=== PATIENT | female | born 1965 | race Caucasian/White ===

== ENCOUNTER 2020-11-15 12:57 | Observation (INO) | payer MEDICARE ==
[~2020-11-15] VITALS: Ht 160 cm; Wt 90.5 kg
--- NOTE | 2020-11-15 13:29 | NUR ---
DR BOYLE AT BS FOR EXAM
[2020-11-15] MEDS ORDERED: LORazepam 2 MG/ML, 1ML IV ONE (13:39)
[2020-11-15] MEDS ORDERED: KETOROLAC 30 MG/1 ML ONE (13:55)
[2020-11-15] MEDS ORDERED: LORazepam 2 MG/ML, 1ML ONE (13:55)
[2020-11-15] MEDS ORDERED: SODIUM CHLORIDE 0.9% 1,000ML IV ONE ×2 (14:00→18:00)
[2020-11-15] MEDS ORDERED: SODIUM CHLORIDE FLUSH 10ML SYR IVF ONE (14:00)
[2020-11-15] MEDS ORDERED: KETOROLAC 30 MG/1 ML IVPush ONE (14:00)
[2020-11-15 14:04] LABS: MEAN CORPUSCULAR HEMOGLOBIN 27.6 pg (27.0-34.8); MEAN CORPUSCULAR HGB CONC 33.8 g/dL (32.4-35.8); PLATELET COUNT 156 x10^3/uL (130-400); RED CELL DISTRIBUTION WIDTH 15.4 % (9.6-15.2)
--- NOTE | 2020-11-15 14:10 | NUR ---
AMBULATORY TO [facility] W/ STEADY GAIT.
[2020-11-15 14:17] LABS: ALBUMIN 3.7 g/dL (3.4-5.0); ANION GAP 8 mmol/L (5-15); CALCIUM 8.7 mg/dL (8.5-10.1); CHLORIDE 113 mmol/L (98-107); CREATININE 0.84 mg/dL (0.55-1.02)
[2020-11-15] MEDS: PLEASE ENTER ALLERGIES MC SCH (14:17)
--- NOTE | 2020-11-15 14:27 | NUR ---
PIV AND NS BOLUS INITIATED. TORADOL AND ATIVAN GIVEN PER EMAR. MONITORING CONTINUING, SIDE RAILS UP X 2, CALL LIGHT W/IN REACH.
[2020-11-15 14:47] LABS: MD YES
[2020-11-15 14:50] LABS: LYMPH#(MANUAL) 1.02 x10^3/uL (1-3.4); LYMPHS% (MANUAL) 5 % (22-44); MONOS#(MANUAL) 0.41 x10^3/uL (0.3-2.7); MONOS% (MANUAL) 2 % (2-9); SEG#(MANUAL) 18.88 x10^3/uL (1.8-6.8); SEGS% (MANUAL) 93 % (42-75)
[2020-11-15 14:51] LABS: MICROSCOPIC AUTO
[2020-11-15 14:52] LABS: <PLATELET ESTIMATE> ADEQUATE; <PLT MORPHOLOGY> NORMAL PLT MORPH
[2020-11-15 14:53] LABS: <RBC MORPHOLOGY> NORMAL
--- NOTE | 2020-11-15 15:59 | NUR ---
PT DOZING; EASILY AWAKENED. MONITORING CONTINUING: SINUS TACH.
[2020-11-15] MEDS ORDERED: CEFTRIAXONE PMX 1GM/50ML 50 ML IVPB ONE (16:00)
[2020-11-15] MEDS ORDERED: SODIUM CHLORIDE 0.9% 1,000ML IVBOLUS ONE ×2 (16:00→17:00)
[2020-11-15] MEDS ORDERED: MELOXICAM (16:03)
[2020-11-15] MEDS ORDERED: CITA10TA4 PO (16:03)
[2020-11-15] MEDS ORDERED: GABA300C PO ×2 (16:03→16:04)
[2020-11-15] MEDS ORDERED: MELO7.5T31 PO (16:04)
--- NOTE | 2020-11-15 16:34 | NUR ---
NS BAG #2 DEIDRE. LATRICE JIANG. BLD CX BAND ON PT WRIST.
--- NOTE | 2020-11-15 16:45 | NUR ---
CALLED PT'S FRIEND, AT PT'S REQUEST: BRUNO MARKS, [birth year], CELL [phone], HOME [phone]. PT STATUS PROVIDED TO BRUNO. OFFERED TO CALL BRUNO LATER WHEN POC IS DETERMINED.
--- NOTE | 2020-11-15 16:58 | NUR ---
PT REPORT TO LAURA BROWN RN. PT CARE TRANSFERRED.
--- NOTE | 2020-11-15 17:40 | NUR ---
PT REPORT FROM JOSE ELIAS BROWN. PT CARE TO BE ASSUMED.
[2020-11-15] MEDS ORDERED: DOCUSATE 100 MG CAPSULE PO PRN (18:00)
[2020-11-15] MEDS ORDERED: ACETAMINOPHEN 325 MG TABLET PO PRN (18:00)
[2020-11-15] MEDS ORDERED: POLYETHYLENE GLYCOL 17 GM PACKET PO PRN (18:00)
[2020-11-15] MEDS ORDERED: ONDANSETRON 2MG/ML, 2ML IV PRN (18:00)
[2020-11-15] MEDS ORDERED: CEFTRIAXONE PMX 1GM/50ML 50 ML IV ONE (18:00)
[2020-11-15] MEDS ORDERED: CEFTRIAXONE PMX 1GM/50ML 50 ML ONE ×2 (18:23→19:31)
--- NOTE | 2020-11-15 18:33 | NUR ---
PT AMBULATORY TO & FROM [facility] W/OUT INCIDENT; GAIT STEADY. NS BAG #3 HUNG; IV SITE PATENT.
--- NOTE | 2020-11-15 18:36 | NUR ---
2 ADDITIONAL NS BOLUS ORDERS IN CHART; WOULD MAKE A TOTAL OF 5 LITERS NS BOLUSES; WILL CONFIRM ADDITIONAL ORDERS W/ HOSPITALIST.
[2020-11-15 18:38] LABS: FIO2 RA %
[2020-11-15 18:45] LABS: MEAN CORPUSCULAR HEMOGLOBIN 27.5 pg (27.0-34.8); MEAN CORPUSCULAR HGB CONC 33.5 g/dL (32.4-35.8); MEAN PLATELET VOLUME 10.5 fL (7.4-10.4); PLATELET COUNT 152 x10^3/uL (130-400); RED CELL DISTRIBUTION WIDTH 15.5 % (9.6-15.2)
[2020-11-15 18:52] LABS: ALBUMIN 3.1 g/dL (3.4-5.0); ANION GAP 6 mmol/L (5-15); CALCIUM 7.7 mg/dL (8.5-10.1); CHLORIDE 115 mmol/L (98-107)
[2020-11-15 18:57] LABS: ALANINE AMINOTRANSFERASE 30 U/L (12-78); ALKALINE PHOSPHATASE 99 U/L (45-117); BILIRUBIN,TOTAL 0.6 mg/dL (0.2-1.0); CREATININE 0.82 mg/dL (0.55-1.02)
[2020-11-15 19:07] LABS: MD YES
[2020-11-15 19:10] LABS: BAND#(MANUAL) 0.19 x10^3/uL; BANDS%(MANUAL) 1 % (0-7); LYMPH#(MANUAL) 1.16 x10^3/uL (1-3.4); LYMPHS% (MANUAL) 6 % (22-44); MONOS#(MANUAL) 0.39 x10^3/uL (0.3-2.7); MONOS% (MANUAL) 2 % (2-9); SEG#(MANUAL) 17.56 x10^3/uL (1.8-6.8); SEGS% (MANUAL) 91 % (42-75)
[2020-11-15 19:11] LABS: <PLATELET ESTIMATE> ADEQUATE; <PLT MORPHOLOGY> NORMAL PLT MORPH; <RBC MORPHOLOGY> NORMAL
--- NOTE | 2020-11-15 19:36 | NUR ---
3RD LITER OF NS INFUSED. 4TH LITER HUNG; INFUSING AT TKO
[2020-11-15] MEDS: SODIUM CHLORIDE 0.9% 1,000 ML IV SCH (19:37)
--- NOTE | 2020-11-15 19:41 | NUR ---
LATRICE 1GM PHILIP JIANG.
--- NOTE | 2020-11-15 19:47 | NUR ---
CALLED RECEIVING UNIT; RN NOT CURRENTLY AVAILABLE BUT WILL CALL BACK.
[2020-11-15] MEDS ORDERED: ENOXAPARIN 40 MG/0.4 ML ONE (19:48)
--- NOTE | 2020-11-15 20:02 | NUR ---
PT REPORT TO JOSE ELIAS BIRD FOR ROOM [id number]
[2020-11-15] MEDS: ENOXAPARIN 40 MG/0.4 ML SQ SCH (20:16)
--- NOTE | 2020-11-15 20:16 | NUR ---
LOVENOX GIVEN PER EMAR. PT TRANSFERRED TO FLOOR
[2020-11-15] MEDS: HYDROcodone/APAP 5/325 TABLET PO PRN (20:54)
[2020-11-15 21:00] VITALS: BP 100/67
[2020-11-16] MEDS: SODIUM CHLORIDE 0.9% 1,000 ML IV SCH (02:26)
[2020-11-16 02:28] VITALS: BP 93/61
[2020-11-16] MEDS: HYDROcodone/APAP 5/325 TABLET PO PRN (06:00)
[2020-11-16 06:54] VITALS: BP 114/70
[2020-11-16 07:37] LABS: BASOPHILS % (AUTO) 0 % (0-1); EOSINOPHILS % (AUTO) 0 % (1-7); LYMPHOCYTES % (AUTO) 9 % (22-44); MEAN CORPUSCULAR HEMOGLOBIN 27.7 pg (27.0-34.8); MEAN CORPUSCULAR HGB CONC 33.1 g/dL (32.4-35.8); MEAN PLATELET VOLUME 9.8 fL (7.4-10.4); MONOCYTES % (AUTO) 5 % (2-9); NEUTROPHILS % (AUTO) 86 % (42-75); PLATELET COUNT 133 x10^3/uL (130-400); RED BLOOD COUNT 4.46 x10^6/uL (3.82-5.3); RED CELL DISTRIBUTION WIDTH 15.6 % (9.6-15.2)
[2020-11-16 07:50] LABS: MD NO
[2020-11-16 08:10] LABS: HCT (SEDRATE) 37.3 % (34.6-47.8)
[2020-11-16 08:14] LABS: INTERNATIONAL NORMALIZED RATIO 1.11 (0.93-1.1); PROTHROMBIN TIME 11.9 Seconds (9.6-11.5)
[2020-11-16] MEDS ORDERED: PROCHLORPERAZINE 5 MG/ML, 2ML IVPush PRN (11:30)
[2020-11-16 12:16] VITALS: BP 102/67
[2020-11-16] MEDS: CEFTRIAXONE PMX 2GM/50ML 50 ML IVPB SCH (17:45)
[2020-11-16 19:11] VITALS: BP 103/60
[2020-11-16] MEDS: ENOXAPARIN 40 MG/0.4 ML SQ SCH (20:01)
[2020-11-17 03:11] VITALS: BP 96/59
[2020-11-17 06:47] VITALS: BP 104/69
[2020-11-17 09:10] LABS: ANION GAP 6 mmol/L (5-15); CALCIUM 8.4 mg/dL (8.5-10.1); CHLORIDE 109 mmol/L (98-107); CREATININE 0.93 mg/dL (0.55-1.02)
[2020-11-17 09:13] LABS: BASOPHILS % (AUTO) 0 % (0-1); EOSINOPHILS % (AUTO) 2 % (1-7); LYMPHOCYTES % (AUTO) 21 % (22-44); MEAN CORPUSCULAR HEMOGLOBIN 27.7 pg (27.0-34.8); MEAN CORPUSCULAR HGB CONC 33.1 g/dL (32.4-35.8); MEAN PLATELET VOLUME 9.9 fL (7.4-10.4); MONOCYTES % (AUTO) 8 % (2-9); NEUTROPHILS % (AUTO) 70 % (42-75); PLATELET COUNT 159 x10^3/uL (130-400); RED BLOOD COUNT 4.53 x10^6/uL (3.82-5.3); RED CELL DISTRIBUTION WIDTH 15.4 % (9.6-15.2)
[2020-11-17 09:19] LABS: MD NO
[2020-11-17 13:11] VITALS: BP 112/76
[2020-11-17] MEDS ORDERED: CEFD300C37 PO (14:17)
[2020-11-17] MEDS ORDERED: POTASSIUM CHLORIDE 20 MEQ TAB.ER.PRT PO ONE (17:30)
[2020-11-17] MEDS: CEFTRIAXONE PMX 2GM/50ML 50 ML IVPB SCH (17:32)
[2020-11-17 20:20] VITALS: BP 115/70
[2020-11-17] MEDS: ENOXAPARIN 40 MG/0.4 ML SQ SCH (20:20)
[2020-11-18 01:57] VITALS: BP 116/74
[2020-11-18 06:04] LABS: BASOPHILS % (AUTO) 0 % (0-1); EOSINOPHILS % (AUTO) 2 % (1-7); LYMPHOCYTES % (AUTO) 28 % (22-44); MEAN CORPUSCULAR HEMOGLOBIN 27.4 pg (27.0-34.8); MEAN CORPUSCULAR HGB CONC 33.3 g/dL (32.4-35.8); MEAN PLATELET VOLUME 10.2 fL (7.4-10.4); MONOCYTES % (AUTO) 8 % (2-9); NEUTROPHILS % (AUTO) 62 % (42-75); PLATELET COUNT 166 x10^3/uL (130-400); RED CELL DISTRIBUTION WIDTH 15.2 % (9.6-15.2)
[2020-11-18 06:09] LABS: MD NO
[2020-11-18 06:10] LABS: ANION GAP 7 mmol/L (5-15); CALCIUM 8.5 mg/dL (8.5-10.1); CHLORIDE 111 mmol/L (98-107); CREATININE 0.78 mg/dL (0.55-1.02)
[2020-11-18 06:55] VITALS: BP 104/68
[2020-11-18] MEDS ORDERED: POTASSIUM CHLORIDE 20 MEQ TAB.ER.PRT PO ONE (09:30)
[2020-12-16] MEDS ORDERED: MELO15TA24 PO (14:54)
[2020-12-16] MEDS ORDERED: ESCI10TA10 PO (14:54)
[2020-12-24] MEDS ORDERED: SENN-211 PO (07:53)
[2020-12-24] MEDS ORDERED: ACET-1600 PO (07:53)
[2020-12-24] MEDS ORDERED: OXYC5TAB98 PO (07:53)
[2020-12-24] MEDS ORDERED: CYCL10TA2 PO (07:53)
== END 2020-11-18 12:21 | disposition home or self-care (01) ==
LOC: ED 17:11 → SUATTDRO 17:15 → INTOOBSV 17:24 → EDIP 17:24 → 3N 20:19 → DCLOUNGE 11-18 12:19
PROVIDERS: ADMIT Hospitalist; ATTEND Internal Medicine
DX: A41.9 Sepsis, unspecified organism (principal); N39.0 Urinary tract infection, site not specified; E87.6 Hypokalemia; N10 Acute pyelonephritis; D72.829 Elevated white blood cell count, unspecified; R53.83 Other fatigue; R11.2 Nausea with vomiting, unspecified; K76.0 Fatty (change of) liver, not elsewhere classified; R79.89 Other specified abnormal findings of blood chemistry; G89.29 Other chronic pain; M54.5 Low back pain; Z88.0 Allergy status to penicillin; Z79.899 Other long term (current) drug therapy
CPT/HCPCS: 36415; 36600; 71045; 74176; 76700; 80048; 80053; 81001; 82040; 82533; 82803; 83605; 83615; 83735; 85025; 85379; 85610; 85651; 86140; 87040; 87086; 93005; 93306; 93970; 96361; 96365; 96366; 96372; 96375; 99291; G0378; J0696; J0780; J1650; J1885; J2060; J2405; J7030; 96374

== ENCOUNTER → 2020-12-16 | Outpatient (CLI) | payer MEDICARE ==
[~2020-12-16] MED LIST: CEFD300C37 PO; CITA10TA4 PO; ESCI10TA10 PO; GABA300C PO; MELO15TA24 PO; MELO7.5T31 PO; MELOXICAM
[2020-12-16 15:54] LABS: BASOPHILS % (AUTO) 1 % (0-1); EOSINOPHILS % (AUTO) 3 % (1-7); LYMPHOCYTES % (AUTO) 20 % (22-44); MEAN CORPUSCULAR HEMOGLOBIN 27.5 pg (27.0-34.8); MEAN CORPUSCULAR HGB CONC 33.2 g/dL (32.4-35.8); MEAN PLATELET VOLUME 10.5 fL (7.4-10.4); MONOCYTES % (AUTO) 6 % (2-9); NEUTROPHILS % (AUTO) 70 % (42-75); PLATELET COUNT 173 x10^3/uL (130-400); RED BLOOD COUNT 4.99 x10^6/uL (3.82-5.3); RED CELL DISTRIBUTION WIDTH 15.2 % (9.6-15.2)
[2020-12-16 16:02] LABS: ANION GAP 4 mmol/L (5-15); CHLORIDE 111 mmol/L (98-107); CREATININE 0.84 mg/dL (0.55-1.02); MD NO
[2020-12-16 16:04] LABS: PROTHROMBIN TIME 10.7 Seconds (9.6-11.5)
[2020-12-16 16:31] LABS: MICROSCOPIC NOT IND
== END | disposition home or self-care (01) ==
LOC: STAR 14:14
PROVIDERS: ATTEND Orthopaedic Surgery
DX: Z01.818 Encounter for other preprocedural examination (principal); M54.16 Radiculopathy, lumbar region; M43.16 Spondylolisthesis, lumbar region; Z20.822 Contact with and (suspected) exposure to COVID-19
CPT/HCPCS: 36415; 71046; 80048; 81003; 82306; 85025; 85610; 85730; 93005; U0003

== ENCOUNTER 2021-03-09 12:01 | Emergency (ER) | payer MEDICARE ==
[~2021-03-09] VITALS: Ht 160 cm; Wt 88.6 kg
[~2021-03-09 12:01] MED LIST changes: +ACET-1600 PO; +CYCL10TA2 PO; +OXYC5TAB98 PO; +SENN-211 PO
[2021-03-09 12:56] LABS: MICROSCOPIC NOT IND
[2021-03-09 13:10] LABS: BASOPHILS % (AUTO) 1 % (0-1); EOSINOPHILS % (AUTO) 4 % (1-7); LYMPHOCYTES % (AUTO) 25 % (22-44); MEAN CORPUSCULAR HEMOGLOBIN 25.8 pg (27.0-34.8); MEAN PLATELET VOLUME 10.1 fL (7.4-10.4); MONOCYTES % (AUTO) 6 % (2-9); NEUTROPHILS % (AUTO) 64 % (42-75); PLATELET COUNT 197 x10^3/uL (130-400); RED BLOOD COUNT 5.15 x10^6/uL (3.82-5.3)
[2021-03-09 13:13] LABS: ALBUMIN 3.6 g/dL (3.4-5.0); ANION GAP 7 mmol/L (5-15); CALCIUM 8.8 mg/dL (8.5-10.1); CHLORIDE 109 mmol/L (98-107); CREATININE 1.02 mg/dL (0.55-1.02)
[2021-03-09 13:19] LABS: MD NO
--- NOTE | 2021-03-09 14:31 | NUR ---
ASSUMED CARE OF PATIENT. PATIENT REPORTS BILATERAL FLANK PAIN AND DISCOMFORT WHEN SHE URINATES. VS STABLE. CALL LIGHT IN PLACE. WILL CONTINUE TO MONITOR.
[2021-03-09] MEDS ORDERED: MAALOX/HYOSCYAMINE/LIDOCAINE 45 ML BTL PO ONE (18:00)
[2021-03-09] MEDS ORDERED: MAALOX/HYOSCYAMINE/LIDOCAINE 45 ML BTL ONE (18:04)
[2021-03-09 18:06] VITALS: BP 130/76
== END 2021-03-09 18:26 | disposition home or self-care (01) ==
LOC: ED 14:44
DX: K29.00 Acute gastritis without bleeding (principal); R10.11 Right upper quadrant pain; R10.13 Epigastric pain; R11.0 Nausea; Z90.49 Acquired absence of other specified parts of digestive tract
CPT/HCPCS: 36415; 76700; 80048; 81003; 82040; 85025; 99285